=== PATIENT | female | born 1980 ===

== ENCOUNTER 2023-06-23 09:25 | Day surgery (SDC) | payer OTHER ==
[2023-06-16 14:00] LABS: INR 0.98; PROTHROMBIN TIME 10.3 SECONDS (9.0-11.5)
[~2023-06-23] VITALS: Ht 162.6 cm; Wt 74.4 kg
[~2023-06-23 09:25] MED LIST: BUMETANIDE2 MG PO; CLONAZEPAM1 MG PO; DEPAKOTE ER500 MG PO; GEMFIBROZIL600 MG PO; GLIMEPIRIDE4 MG; LEVO-T75 MCG PO; METFORMIN HCL500 M3 PO; RESTORIL30 MG PO; SURFAK240 M1 PO; ZOLOFT50 MG PO; ZYPREXA10 MG PO
[2023-06-23] MEDS ORDERED: METRONIDAZOLE/SODIUM CHLORIDE 500 MG/100 ML PIGGYBACK IV ONE ×2 (10:52→11:45)
[2023-06-23] MEDS ORDERED: CEFTRIAXONE SODIUM 2,000 MG VIAL ONE (10:52)
[2023-06-23] MEDS ORDERED: BUPIVACAINE HCL/PF 0.5% 30ML ML ONE (10:52)
[2023-06-23] MEDS ORDERED: POVIDONE-IODINE 118 ML BOTT TOP ONE ×2 (10:52→11:45)
[2023-06-23] MEDS ORDERED: DIBUCAINE 15 GM OINT..GM. TUBE ONE (10:53)
[2023-06-23] MEDS ORDERED: LIDOCAINE HCL/EPINEPHRINE 10MG/ML 1% 50ML IJ ONE ×2 (10:53→11:45)
[2023-06-23] MEDS ORDERED: HEMOSTATIC MATRIX 1 KIT KIT TOP ONE ×2 (11:27→11:45)
[2023-06-23] MEDS ORDERED: BUPIVACAINE HCL/PF 0.5% 5MG/ML VIAL IJ ONE (11:45)
[2023-06-23] MEDS ORDERED: CEFTRIAXONE SODIUM 2,000 MG VIAL IV ONE (11:45)
[2023-06-23] MEDS ORDERED: DIBUCAINE 30 GM TUBE RECTAL ONE (11:45)
[2023-06-23] MEDS ORDERED: AMOX1TAB5 PO (15:12)
[2023-06-23] MEDS ORDERED: INTESTINEX680 M1 PO (15:12)
[2023-06-23] MEDS ORDERED: TRAM1TAB98 PO (15:12)
[2023-06-23] MEDS ORDERED: NEURONTIN300 MG PO (15:12)
== END 2023-06-23 16:50 | disposition home or self-care (01) ==
LOC: CIR.AMB 09:25
PROVIDERS: ATTEND Surgery
DX: D12.8 Benign neoplasm of rectum (principal); E11.9 Type 2 diabetes mellitus without complications; E03.9 Hypothyroidism, unspecified; Z20.822 Contact with and (suspected) exposure to COVID-19

== ENCOUNTER 2024-07-12 05:25 | Day surgery (SDC) | payer OTHER ==
[2024-07-04 14:18] VITALS: BP 113/79
[~2024-07-12] VITALS: Ht 160 cm; Wt 77.1 kg
[~2024-07-12 05:25] MED LIST changes: +AMOX1TAB5 PO; +CLOZARIL100 MG; +INTESTINEX680 M1 PO; +NEURONTIN300 MG PO; +TRAM1TAB98 PO
[2024-07-12] MEDS ORDERED: BUPIVACAINE HCL/MPF 0.5% 30ML VIAL ONE (07:03)
[2024-07-12] MEDS ORDERED: CEFTRIAXONE SODIUM 2,000 MG VIAL ONE (07:03)
[2024-07-12] MEDS ORDERED: METRONIDAZOLE/SODIUM CHLORIDE 500 MG/100 ML PIGGYBACK IV ONE (07:04)
[2024-07-12] MEDS ORDERED: LIDOCAINE HCL 1%/EPINEPHRINE 20ML VIAL IJ ONE (07:04)
[2024-07-12] MEDS ORDERED: POVIDONE-IODINE 118 ML BOTT TOP ONE (07:32)
[2024-07-12] MEDS ORDERED: HEMOSTATIC MATRIX 1 KIT KIT TOP ONE (07:42)
[2024-07-12] MEDS ORDERED: TRAM1TAB98 PO (10:30)
[2024-07-12] MEDS ORDERED: CELECOXIB200 MG PO (10:30)
[2024-07-12] MEDS ORDERED: NEURONTIN300 MG PO (10:30)
[2024-07-12] MEDS ORDERED: RECTICARE30 GM TOP (10:31)
== END 2024-07-12 14:50 | disposition home or self-care (01) ==
LOC: CIR.AMB 05:25
PROVIDERS: ATTEND Surgery
DX: D12.8 Benign neoplasm of rectum (principal); D12.9 Benign neoplasm of anus and anal canal; K62.5 Hemorrhage of anus and rectum; E11.9 Type 2 diabetes mellitus without complications; E03.8 Other specified hypothyroidism; K59.00 Constipation, unspecified